=== PATIENT | male | born 1945 | race Caucasian/White ===

== ENCOUNTER 2017-10-24 09:04 | Day surgery (SDC) | payer OTHER ==
[2017-10-19 14:55] LABS: Absolute Lymphocytes (CBC) 0.8 K/uL (0.7-4.9); Absolute Monocytes 0.3 K/uL (0.1-1.3); Absolute Neutrophil 7.4 K/uL (1.8-8.0); Basophils % 0.2 % (0-1.3); Eosinophils % 0.6 % (0-4.4); Hematocrit 39.8 % (39.6-49.0); Lymphocytes % 9.5 % (15.3-44.8); MCH 30.6 pg (27.0-35.0); MCV 92.3 fL (80-100); MPV 9.5 fL (7.6-11.3); Monocytes % 3.3 % (3.3-12.3); RBC Red Blood Cell Count 4.31 M/uL (4.33-5.43)
[2017-10-19 15:12] LABS: Urine Appearance CLEAR; Urine Bilirubin NEGATIVE (NEG); Urine Blood 2+ (NEG); Urine Color YELLOW; Urine Glucose NEGATIVE (NEG); Urine Protein TRACE (NEG); Urine Urobilinogen 0.2 mg/dL (0.2-1.0)
[2017-10-19 15:15] LABS: Urine Microscopic Reflex ORDER UMIC
[2017-10-19 15:18] LABS: Phosphorus 2.5 mg/dL (2.5-4.3); Uric Acid 8.4 mg/dL (4.8-8.7)
[2017-10-19 15:19] LABS: Potassium 3.6 mEq/L (3.6-5.0)
[2017-10-19 15:45] LABS: Protime INR 1.1
[2017-10-19 15:53] LABS: Urine Bacteria <20 /HPF (NONE SEEN); Urine Culture Reflex Order NOT NEEDED
[2017-10-19 16:10] LABS: Platelet Estimate ADEQ; Urine White Blood Cell Casts OK
[2017-10-19 16:11] LABS: Blood Morphology Comment NOT SEEN (NOT SEEN)
--- NOTE | 2017-10-19 16:48 | EKG ---
Test Date: 2017-10-19 Test Time: 14:39:00 Land Planner: ERICA MEASUREMENT RESULTS: Intervals: Rate: 69 OH: 160 QRSD: 98 QT: 408 QTc: 437 [place]: P: 2 OH: 160 QRS: -30 T: 27 INTERPRETIVE STATEMENTS: Normal sinus rhythm Left axis deviation Abnormal ECG Compared to ECG 07/18/2017 10:30:48 Left-axis deviation now present Electronically Signed On 10-19-17 16:47:43 CDT by Rupesh Engle
--- OUTSIDE RECORDS SUMMARY | 2017-10-24 09:12 | XMS REPORT | Clinical Summary ---
:1945 Author Organization [facility] Address [address] [place] [address] Care Team Providers Name Role Phone Asked, No Pcp Primary Care Provider Unavailable Allergies Active Allergy Reactions Severity Noted Date Comments Olmesartan 10/11/2016 Current Medications Prescription Sig. Disp. Refills Start Date End Date Status amLODIPine (NORVASC) 10 Take 10 mg by 4 07/29/2016 Active mg tablet mouth once daily. celecoxib (CeleBREX) 200 TAKE ONE 2 08/31/2016 Active MG capsule CAPSULE BY MOUTH TWICE A DAY WITH A MEAL hydroCHLOROthiazide Take 25 mg by 40 07/29/2016 Active (HYDRODIURIL) 25 MG mouth once tablet daily. HYDROcodone-acetaminophen TAKE 1 TABLET 0 08/31/2016 Active (NORCO) 10-325 mg per BY MOUTH EVERY tablet 4 HOURS levothyroxine (SYNTHROID, Take 112 mcg 4 07/29/2016 Active LEVOXYL) 112 mcg tablet by mouth every morning. ondansetron (ZOFRAN) 4 MG TAKE 1 TABLET 0 08/31/2016 Active tablet BY MOUTH EVERY 8 HOURS NEEDED FOR NAUSEA AND VOMITING LIVALO 2 mg tablet Take 2 mg by 4 07/29/2016 Active mouth once daily. lansoprazole (PREVACID) Take 15 mg by Active 15 MG capsule mouth daily. apixaban (ELIQUIS) 2.5 mg Take 1 tablet 60 tablet 0 10/19/2016 tablet (2.5 mg total) 7 by mouth 2 (two) times a day for 30 days. Active Problems Problem Noted Date Osteoarthritis of right hip 10/18/2016 Encounters Date Type Specialty Care Team Description 11/23/2016 Lab Lab Cheko Sandoval MD Other specified disorders of bone density and structure, unspecified site (Primary Dx) after 10/23/2016 Social History Tobacco Use Types Packs/Day Years Used Date Never Smoker Alcohol Use Drinks/Week oz/Week Comments No occasional Sex Assigned at Date Recorded Not on file Last Filed Vital Signs Not on file Plan of Treatment Health Maintenance Due Date Last Done Comments COLONOSCOPY 1996 ZOSTER VACCINE 2006 PNEUMOCOCCAL POLYSACCHARIDE VACCINE AGE 65 AND OVER 2011 PNEUMOCOCCAL-13 2011 INFLUENZA VACCINE 02/28/2017 Implants Implanted Type Area Hot Stamp Operator Device Expiration Model / Identifier Date Serial / Lot Linear Lateral Porous W/ P2, Size 11 Hip Implant N/A: [employer] 2020 [id number] / Implanted: Qty: 1 on 10/18/2016 by Cheko Sandoval MD System N/A ( [employer]) [id number] Head Fml Actblr Sys Imp Co-Cr 40mm -3.5mm Fmp - [id number] Hip Joint N/A: [employer] 05/27/2021 [id number] / Implanted: Qty: 1 on 10/18/2016 by Cheko Sandoval MD Implants N/A LP / [id number] Sleeve Actblr Natrl Ofst Bl - [id number] Hip Joint Right: [employer] 12/21/2021 [id number] 000 / Implanted: Qty: 1 on 10/18/2016 by Cheko Sandoval MD Implants Hip LP / [id number] Fmp Hemispherical Shells W/Screw Holes, 56mm, W/P2 Coating - [id number] IMPLANT Right: [employer] 08/18/2022 [id number] / Implanted: Qty: 1 on 10/18/2016 by Cheko Sandoval MD DEVICES Hip / [id number] Liner / Non-Hooded - Neutral, Mp9, Hxe-Plus, 40mm - [id number] [id number] IMPLANT Right: [employer] 09/19/2021 [id number] / Implanted: Qty: 1 on 10/18/2016 by Cheko Sandoval MD DEVICES Hip / [id number] Results Miscellaneous referral test (11/23/2016 2:18 PM) Component Value Ref Range Misc test name 1,25 Dihydroxy Vitamin D Misc test result see note Comment: 1,25-Dihydroxyvitamin D, Serum Result 72 pg/mLHIGH(Reference [id number]) Laboratory Notes This test was developed and its performance characteristics determined by [facility] in a manner consistent with CLIA requirements. This test has not been cleared or approved by the U.S. Food and Drug Administration. Performing Site [facility] [address] [facility] [address] Specimen Performing Laboratory [facility] [address] [place] [address] Vitamin D 25 hydroxy level (11/23/2016 2:18 PM) Component Value Ref Range Vitamin D, 25-hydroxy 21.0 (L) 30.0 - 150.0 ng/mL Comment: This assay reports the sum of 25-hydroxy vitamin D3 and 25-hydroxy vitamin D2. Reference range: 0-17 years: Deficiency: less than 20ng/mL Optimum level: greater than or equal to 20 ng/mL. 18 years and older: Deficiency: less than 20ng/mL Insufficiency: 20-29 ng/mL Optimum Level: 30-80 ng/mL The assay reportable range is 0.0-96.0 ng/mL. Levels higher than 150 ng/mL may be associated with toxicity. If toxicity is clinically suspected and the reported result is >96.0 ng/mL , contact lab for alternative methods to obtain a definitivelevel. If separate quantitation of 25-hydroxy vitamin D3 and 25-hydroxy vitamin D2 is needed, please contact lab for alternative methods. Specimen Performing Laboratory Blood [facility] DEPARTMENT OF PATHOLOGY AND GENOMIC MEDICINE [address] [place] [id number] Parathyroid hormone (11/23/2016 2:18 PM) Component Value Ref Range PTH 57 15 - 65 pg/mL Specimen Performing Laboratory Blood [facility] DEPARTMENT OF PATHOLOGY AND GENOMIC MEDICINE [address] [place] [address] Calcium level (11/23/2016 2:18 PM) Component Value Ref Range Calcium 9.0 8.8 - 10.2 mg/dL Specimen Performing Laboratory Plasma specimen [facility] DEPARTMENT OF PATHOLOGY AND GENOMIC MEDICINE [address] [place] [phone] Hepatic function panel (11/23/2016 2:18 PM) Component Value Ref Range Albumin 3.7 3.5 - 5.0 g/dL Total bilirubin <0.2 0.0 - 1.2 mg/dL Bilirubin direct <0.2 0.0 - 0.3 mg/dL Alkaline phosphatase 60 40 - 129 U/L Protein 6.6 6.3 - 8.3 g/dL Comment: 4.6-7.0 g/dL 1 week 4.4-7.6 g/dL 7 months-1year5.1-7.3 g/dL 1-2 years5.6-7.5 g/dL >3 years6.0-8.0 g/dL 18-150 6.3-8.3 g/dL ALT 32 5 - 50 U/L AST 35 10 - 50 U/L Specimen Performing Laboratory Plasma specimen [facility] DEPARTMENT OF PATHOLOGY AND GENOMIC MEDICINE [address] [place] [address] after 10/23/2016 Insurance Payer Benefit Plan / Group Subscriber ID Type Phone Address AETNA MEDICARE AETNA MEDICARE HMO/PPO [facility] xxxxxxxx O [phone] [place] [id number]
[2017-10-24] MEDS ORDERED: PROPOFOL 200 MG/20 ML VIAL IV ONE ×2 (09:27→15:04)
[2017-10-24] MEDS ORDERED: MIDAZOLAM HCL 2 MG/2 ML INJ ONE ×2 (09:29→15:04)
[2017-10-24] MEDS ORDERED: FENTANYL CITR 100 MCG/2 ML ONE (09:34)
[2017-10-24] MEDS ORDERED: LIDOCAINE 2% MPF 5 ML VIAL ONE ×2 (09:34→15:04)
[2017-10-24] MEDS ORDERED: ONDANSETRON 4 MG/2 ML VIAL ONE ×2 (09:34→15:04)
[2017-10-24] MEDS ORDERED: GENTAMICIN 80 MG/100 ML BAG 80 MG/100 ML BAG IV ONE ×2 (10:10→16:18)
[2017-10-24] MEDS ORDERED: Ringers Lactate 1,000 ML IV ONE ×2 (10:10→16:39)
[2017-10-24] MEDS ORDERED: ROCURONIUM 50 MG/5 ML VIAL IV ONE ×2 (10:26→15:04)
[2017-10-24] MEDS ORDERED: NEOSTIGMINE 1 MG/ML -5 ML SYRINGE ONE (10:39)
[2017-10-24] MEDS ORDERED: GLYCOPYRROLATE 0.2 MG/ML SYR ONE (10:39)
[2017-10-24] MEDS ORDERED: FENTANYL CITR 250 MCG/5 ML ONE (15:04)
--- NOTE | 2017-10-24 18:53 | RAD REPORT ---
EXAM DESCRIPTION: RAD - Urography Retrograde - 10/24/2017 5:38 pm FINDINGS: Abdomen and pelvic fluoroscopy performed. Multiple portable C-arm views were obtained during fluoroscopic assisted retrograde examination. Asse ssment is limited from the available images. Correlation is needed with findings during real-time marion luation.
== END 2017-10-24 20:13 | disposition home or self-care (01) ==
LOC: OR 09:04
PROVIDERS: ATTEND Urology
PROC: 0T768DZ Dilation of Right Ureter with Intraluminal Device, Via Natural or Artificial Opening Endoscopic (ICD-10-PCS; 2017-10-24)
PROC: 0TF68ZZ Fragmentation in Right Ureter, Via Natural or Artificial Opening Endoscopic (ICD-10-PCS; principal; 2017-10-24 16:00)
DX: N20.2 Calculus of kidney with calculus of ureter (principal); I10 Essential (primary) hypertension; E03.9 Hypothyroidism, unspecified; E78.00 Pure hypercholesterolemia, unspecified; G47.33 Obstructive sleep apnea (adult) (pediatric); Z88.6 Allergy status to analgesic agent
CPT/HCPCS: 36415; 52356; 74420; 80048; 82360; 84100; 84550; 85025; 85610; 85730; 87086; 87088; 88300; 93005; J1580 ×2; J2250 ×2; J2405 ×2; J2710; J3010; Q9967; 81003; 81015

== ENCOUNTER 2019-02-21 08:33 | Day surgery (SDC) | payer OTHER ==
--- OUTSIDE RECORDS SUMMARY | 2019-02-21 08:36 | XMS REPORT | Clinical Summary ---
:1945 Author Organization [facility] Address [address] [place] [address] Care Team Providers Name Role Phone Asked, No Pcp Primary Care Provider Unavailable Allergies Active Allergy Reactions Severity Noted Date Comments Olmesartan Other (See Comments) 10/11/2016 Hyper and unable to sleep Medications Medication Sig Dispensed Refills Start Date End Date Status amLODIPine (NORVASC) 10 Take 10 mg by 4 07/29/2016 Active mg tablet mouth once daily. levothyroxine Take 112 mcg by 4 07/29/2016 Active (SYNTHROID, LEVOXYL) 112 mouth nightly. mcg tablet LIVALO 2 mg tablet Take 2 mg by 4 07/29/2016 Active mouth once daily. azaTHIOprine (IMURAN) 50 2 (two) times a 0 10/19/2017 Active mg tablet day. BUMETanide (BUMEX) 0.5 daily with 0 11/20/2017 Active MG tablet lunch. predniSONE (DELTASONE) every other day. 0 10/04/2017 Active 10 mg tablet tamsulosin (FLOMAX) 0.4 Take 0.4 mg by 1 08/24/2017 Active mg capsule,extended mouth daily. release 24hr oxybutynin XL Take 10 mg by 0 10/24/2017 Active (DITROPAN-XL) 10 MG 24 mouth daily. hr tablet cephalexin (KEFLEX) 500 Take 500 mg by 2 10/15/2017 Active MG capsule mouth daily. calcium carbonate Take 1,200 mg by 0 Active (CALCIUM 600 ORAL) mouth every morning. cholecalciferol, vitamin Take by mouth 0 Active D3, (VITAMIN D3) 5,000 every morning. unit tablet ranitidine (ZANTAC) 150 Take 150 mg by 0 Active MG tablet mouth as needed for heartburn. Active Problems Problem Noted Date Osteoarthritis of right hip 10/18/2016 Encounters Date Type Specialty Care Team Description 12/27/2018 Transcribe Orders Access Hosea Luis, Lumbar radiculopathy (Primary Dx) after 02/20/2018 Social History Tobacco Use Types Packs/Day Years Used Date Never Smoker Smokeless Tobacco: Never Used Alcohol Use Drinks/Week oz/Week Comments Yes 10-12 Cans of beer 6.0 - 7.2 Sex Assigned at Date Recorded Not on file Job Start Date Occupation Industry Not on file Not on file Not on file Travel History Travel Start Travel End No recent travel history available. Last Filed Vital Signs Not on file Plan of Treatment Health Maintenance Due Date Last Done Comments COLONOSCOPY SCREENING 1996 SHINGLES VACCINES (#1) 1996 65+ PNEUMOCOCCAL VACCINE (1 of 2 - PCV13) 2011 INFLUENZA VACCINE 02/28/2019 Implants Implanted Type Area Seconds Inspector Device Shelf Model / Identifier Expiration Serial / Date Lot Linear Lateral Porous W/ P2, Size 11 Hip Implant N/A: [employer] 2020 [id number] / Implanted: Qty: 1 on 10/18/2016 by Cheko Sandoval MD System N/A ( [employer]) [id number] Head Fml Actblr Sys Imp Co-Cr 40mm -3.5mm Fmp - [id number] Hip Joint N/A: [employer] 05/27/2021 [id number] 000 / Implanted: Qty: 1 on 10/18/2016 by Cheko Sandoval MD Implants N/A LP / [id number] Sleeve Actblr Natrl Ofst Bl - [id number] Hip Joint Right: [employer] 12/21/2021 [id number] 000 / Implanted: Qty: 1 on 10/18/2016 by Cheko Sandoval MD Implants Hip LP / [id number] Fmp Hemispherical Shells W/Screw Holes, 56mm, W/P2 Coating - [id number] IMPLANT Right: [employer] 08/18/2022 [id number] / Implanted: Qty: 1 on 10/18/2016 by Cheko Sandoval MD DEVICES Hip / [id number] Liner / Non-Hooded - Neutral, Mp9, Hxe-Plus, 40mm - [id number] IMPLANT Right: [employer] 09/19/2021 [id number] / Implanted: Qty: 1 on 10/18/2016 by Cheko Sandoval MD DEVICES [facility] / [id number] Stent Uresean Unvrsa Reprcsd 6fr 26cm Hydrphlc Ctng - [id number] Urological Right: [employer] 09/21/2020 [id number] / Implanted: Qty: 1 on 11/28/2017 by Hemal Loya MD Implants or N/A / Sets [id number] Results Not on fileafter 02/20/2018 Advance Directives Patient has advance care planning documents on file. For more information, please contact:Peng [address] [place] [address]
--- OUTSIDE RECORDS SUMMARY | 2019-02-21 08:36 | XMS REPORT | Continuity of Care Document ---
:1945 Author Organization [employer] Care Team Providers Name Role Phone [employer] Unavailable Unavailable Problems Problem Status Onset Classification Date Comments Source Date Reported Hydronephrosis Active 05/24/20 Finding 10/25/[address] [facility] [place] Colitis Active 05/24/20 Finding 10/25/[address] [facility] [place] Hypothyroid Active 05/24/20 Finding 10/25/[address] [facility] [place] Nephrolithiasis Active 05/24/20 Finding 10/25/[address] [facility] [place] HTN Active 05/24/20 Finding 10/25/[address] [facility] [facility] [place] Medications Medication Details Route Status Patient Ordering Order Source Instructions Provider Date Docusate Sodium DAILY Active St. NEEDED PRN 2018 [facility] [place] Constipation Azathioprine TWICE DAILY Active [facility] 2018 [facility] [place] Tamsulosin AT BEDTIME Active [facility] [place] Hydroxyzine Hcl DAILY Active [facility] [place] Cephalexin DAILY Active [facility] 2017 [facility] [place] Prednisone DAILY Active [facility] [place] Amlodipine Besylate DAILY AFTER Active [facility] SUPPER [facility] [place] Levothyroxine DAILY Active [facility] 2017 [facility] [place] Hydrochlorothiazide DAILY Active [facility] [place] Pitavastatin Calcium DAILY Active [facility] [place] Allergies, Adverse Reactions, Alerts Substance Category Reaction Severity Reaction Status Date Comments Source type Reported codeine Unknown Allergy to Active [facility] St[facility] Substance 8 [facility] [place] hydrocodone Hives Propensity Active St. to adverse 8 [facility] - reactions [place] olmesartan very Propensity Active [facility]. hyper, to adverse 8 [facility] couldn't reactions [place] sleep Immunizations Immunization Date Given Site Status Last Comments Source Updated Influenza Adult 05/24/2017 completed [facility] [place] Results Order Name Results Value Reference Date Interpretation Comments Source Range Laboratory Urine WBC Urine WBC 10/[address] [facility] [address] Studies /2017 [facility] [place] Laboratory Urine <5 10/19 [facility]. Studies Squamous /2017 [facility] Epithelial [place] Cells Laboratory Urine RBC Urine RBC 10/19 St[facility] Studies /2017 [facility] [place] Laboratory Urine Culture Urine 10/19 [facility] Studies Reflexed Culture /2017 [facility] Reflexed [place] Laboratory Urine <20 10/19 [facility] Studies Bacteria /2017 [facility] [place] Laboratory Urine pH 7.0 10/19 [facility]. Studies [facility] [place] Laboratory Urine 0.2 10/19 [facility] Studies Urobilinogen /2017 [facility] [place] Laboratory Urine Total Urine Total 10/19 [facility] Studies Protein Protein /2017 [facility] [place] Laboratory Urine 1.020 10/19 [facility] Studies Specific /2017 [facility] [place] Laboratory Urine Nitrite Urine 10/19 [facility] Studies Nitrite /2017 [facility] [place] Laboratory Urine Urine 10/19 [facility] Studies Leukocyte Leukocyte /2017 [facility] Esterase Esterase [place] Laboratory Urine Ketones Urine 10/19 [facility] Studies Ketones /2017 [facility] [place] Laboratory Urine Glucose Urine 10/19 [facility] Studies Glucose /2017 [facility] [place] Laboratory Urine Color Urine Color 10/19 [facility]. Studies /2018 [facility] [place] Laboratory Urine Blood Urine Blood 10/19 [facility]. Studies /2017 [facility] [place] Laboratory Urine Urine 10/19 [facility] Studies Bilirubin Bilirubin /2017 [facility] [place] Laboratory Urine Urine 10/19 [facility] Studies Appearance Appearance /2017 [facility] [place] Laboratory Blood Blood 10/19 [facility]. Studies Morphology Morphology /2017 [facility] - Comment Comment [place] Laboratory Prothrombin 13.0 9.5 - 12.5 10/19 [facility]. Studies Time /2017 [facility] [place] Laboratory INR 1.10 10/19 [facility]. Studies International /2018 [facility] Normalized [place] Ratio Laboratory Activated 28.0 24.3 - 10/19 [facility]. Studies Partial 36.9 /2017 [facility] Thromboplast [place] Time Laboratory Sodium Level 141 135 - 145 10/[address] [facility] [address] Studies /2017 [facility] [place] Laboratory Potassium 3.6 3.6 - 5.0 10/19 [facility]. Studies Level /2017 [facility] [place] Laboratory Glucose Level 140 65 - 120 10/[address] [facility] [address] Studies /2018 [facility] [place] Laboratory Estimat 75 90 10/19 [facility]. Studies Glomerular /2017 [facility] Filtration [place] Rate Laboratory Creatinine 0.98 0.61 - 10/19 [facility]. Studies 1. [facility] [place] Laboratory Chloride 102 101 - 111 10/19 [facility]. Studies Level /2017 [facility] [place] Laboratory Carbon 32 21 - 31 10/19 [facility]. Studies Dioxide Level /2017 [facility] [place] Laboratory Calcium Level 9.4 8.5 - 10.5 10/19 [facility]. Studies /2017 [facility] [place] Laboratory Blood Urea 22 6 - 20 10/19 [facility]. Studies Nitrogen /2017 [facility] [place] Laboratory Uric Acid 8.4 4.8 - 8.7 10/19 [facility]. Studies /2018 [facility] [place] Laboratory Phosphorus 2.5 2.5 - 4.3 10/19 [facility]. Studies Level /2017 [facility] [place] Laboratory White Blood 8.5 4.3 - 10.9 10/19 [facility]. Studies Count /2017 [facility] [place] Laboratory Red Cell 16.2 12.1 - 10/19 [facility]. Studies Distribution 15.2 /2017 [facility] Width [place] Laboratory Red Blood 4.31 4.33 - 10/19 [facility] Studies Count 5.43 /2017 [facility] [place] Laboratory Platelet 244 152 - 406 10/19 [facility]. Studies Count /2017 [facility] [place] Laboratory Neutrophils % 86.4 41.7 - 10/19 [facility]. Studies 73.7 /2017 [facility] [place] Laboratory Monocytes % 3.3 3.3 - 12.3 10/19 [facility]. Studies /2018 [facility] [place] Laboratory Mean Platelet 9.5 7.6 - 11.3 10/19 [facility]. Studies Volume /2017 [facility] [place] Laboratory Mean 92.3 80 - 100 10/[address] [facility] [address] Studies Corpuscular /2017 [facility] Volume [place] Laboratory Mean 33.1 32.0 - 10/19 [facility]. Studies Corpuscular 36.0 [facility] - Hemoglobin [place] Concent Laboratory Mean 30.6 27.0 - 10/19 [facility]. Studies Corpuscular 35.0 [facility] Hemoglobin [place] Laboratory Lymphocytes % 9.5 15.3 - 10/[address] [facility] [address] Studies 44.8 /2017 [facility] [place] Laboratory Hemoglobin 13.2 13.6 - 10/19 [facility]. Studies 17.9 /2017 [facility] [place] Laboratory Hematocrit 39.8 39.6 - 10/[address] [facility] [address] Studies 49.0 [facility] [place] Laboratory Eosinophils % 0.6 0 - 4.4 10/[address] [facility] [address] Studies [facility] [place] Laboratory Basophils % 0.2 0 - 1.3 10/[address] [facility] [address] Studies [facility] [place] Laboratory Absolute 7.4 1.8 - 8.0 10/19 [facility]. Studies Neutrophil [facility] [place] Laboratory Absolute 0.3 0.1 - 1.3 10/19 [facility]. Studies Monocytes [facility] - (CBC) [place] Laboratory Absolute 0.8 0.7 - 4.9 10/19 [facility]. Studies Lymphocytes [facility] - (CBC) [place] Laboratory Absolute 0.1 0 - 0.5 10/19 [facility]. Studies Eosinophils [facility] - (CBC) [place] Laboratory Absolute 0.0 0 - 0.5 10/19 [facility]. Studies Basophils [facility] - (CBC) [place] Pathology Reports No Data Provided for This Section Diagnostic Reports No Data Provided for This Section Consultation Notes No Data Provided for This Section Discharge Summaries No Data Provided for This Section History and Physicals No Data Provided for This Section Vital Signs Vital Sign Value Date Comments Source Temperature Oral (F) 97.7 F 10/24/2017 [facility] [place] Heart Rate 80 10/24/2017 [facility] [place] Respitory Rate 22 10/24/2017 [facility] Systolic (mm Hg) 149 [facility] [place] Diastolic (mm Hg) 78 10/24/[address] [facility] [place] Height 69 10/19/[address] [facility] [place] Weight 271.00 10/19/[address] [facility] [place] Encounters Location Location Encounter Encounter Reason Attending ADM DC Status Source Details Type Number For Provider Date Date Visit JT St. Registered [id number] 07/[address] [facility] [place] [facility] Registered [id number] 10/[address] [facility] [place] [facility] Departed [id number] 10/24 10/[address] [facility] [place] [facility] [place] Procedures Procedure Code Date Perfomer Comments Source CYSTOSCOPY, RIGHT [id number] [facility] [place] PYELOGRAM.. CYSTO URETEROSCOPY [id number] [facility] - HOLMIUM LASER [place] Urography [id number] 10/24/[address] [facility] Retrograde [place] [id number] 10/19/[address] [facility] [place] Count [id number] 10/19/[address] [facility] [place] Abdomen 1 View [id number] 10/16/[address] [facility] (K[facility] [place] Abdomen 1 View [id number] 07/27/[address] [facility] [place] Assessment and Plan No Data Provided for This Section Plan of Care Plan of Care Date Source No known plan of care. 10/25/[address] [facility] [place] No known plan of care. 10/25/[address] [facility] [place] Social History Social History Date Source Query Response Date Recorded Comment 10/25/[address] [facility] [place] Alcohol Use? No May 24, 2017 3:16am CD- Drugs? No May 24, 2017 3:16am Family History Value Date Source Query Response Instance Date Recorded Comment 10/25/[address] [facility] [place] Medical History Hypertension Father May 24, 2017 3:16am Medical History Hypertension May 12, 2017 1:08pm Advance Directives Order Name Results Value Date Source Advance Directives Advance Directives Advance Directive Response Recorded Date/Time 10/25/2017 [facility] - Does Patient Have Living Will [place] No May 24, 2017 6:00am Durable Power of Commercial Loan [facility] No May 24, 2017 3:16am Functional Status No Data Provided for This Section
--- OUTSIDE RECORDS SUMMARY | 2019-02-21 08:37 | XMS REPORT ---
:1945 Author Organization [facility] Address [address] [place] [address] Dr. Montgomery [address] [place] [address] Care Team Providers Name Role Phone Unavailable Unavailable Unavailable Problems This patient has no known problems. Allergies, Adverse Reactions, Alerts This patient has no known allergies or adverse reactions. Medications This patient has no known medications.
--- OUTSIDE RECORDS SUMMARY | 2019-02-21 08:37 | XMS REPORT | Summary of Care ---
:1945 Author Name AIDEE Ramirez, BELINDA Address MD Physicians Unavailable , Care Team Providers Name Role Phone CHARLIE Ramirez, RODRICK Unavailable Unavailable AMERICA Ramirez, CHRISS Unavailable Unavailable RUDY GUTIERRES M.D., ANA Unavailable Unavailable LANA Ramirez, FILIBERTO Unavailable Unavailable JULIOCESAR Ramirez, CHRISTIN Unavailable Unavailable AIDEE Ramirez, BELINDA Unavailable Unavailable SHUN LEBLANC, CHRISS Frazier Unavailable Unavailable AZAM LEBLANC MD, ALVERTO Unavailable Unavailable Belinda Machado MD Unavailable Unavailable MOODY LEBLANC MD, MAZIN Vu Unavailable Unavailable Unavailable Unavailable Unavailable Functional Status Name Dates Details Functional status health issues are not documented Status: Name Dates Details Cognitive status health issues are not documented Status: Problems Name Dates Details Pre-operative cardiovascular examination (V72.81, Z01.810) Status: Active Chronic hip pain, right (719.45, M25.551) Status: Active Primary localized osteoarthrosis of right hip (715.15, M16.11) Status: Active Hypokalemia (276.8, E87.6) Status: Active Folliculitis (704.8, L73.9) Status: Active Dermatitis (692.9, L30.9) Status: Active Other pruritus (698.8, L29.8) Status: Active Actinic keratoses (702.0, L57.0) Status: Active Bullous pemphigoid (694.5, L12.0) Status: Active High risk medication use (V58.69, Z79.899) Status: Active History of squamous cell carcinoma of skin (V10.83, Z85.828) Status: Active History of basal cell cancer (V10.83, Z85.828) Status: Active Seborrheic dermatitis (690.10, L21.9) Status: Active Medications Name Dates Details hydroCHLOROthiazide 25 MG Oral Tablet one tablet once daily Refills: 0 Active Zetia 10 MG Oral Tablet TAKE 1 TABLET DAILY. Refills: 0 Active Synthroid 112 MCG Oral Tablet TAKE 1 TABLET DAILY Quantity: 30 Refills: 4 Active Norvasc 10 MG Oral Tablet TAKE 1 TABLET DAILY. Refills: 0 Active Livalo 2 MG Oral Tablet one tablet once daily Refills: 0 Active Limbrel 500 MG Oral Capsule One tablet by mouth twice daily Refills: 0 Active Potassium Chloride ER 20 MEQ Oral Tablet Extended Release TAKE 1 TABLET BY MOUTH DAILY Quantity: 30 Refills: 1 CHRISS CROSS M.D. Start : 01-Sep-2016 Active Clindamycin Phosphate 1 % External Solution APPLY DIRECTED. Quantity: 60 Refills: 0 FILIBERTO SCHWARTZ M.D. Start : 05-Nov-2018 Active predniSONE 10 MG Oral Tablet TAKE DIRECTED. Quantity: 90 Refills: 0 ANA PEREZ M.D. Start : 19-Jun-2017 Active azaTHIOprine 50 MG Oral Tablet Take 1 tablet by mouth twice a day Quantity: 180 Refills: 0 RODRICK GUERRA M.D. Start : 07-Aug-2017 Active Triamcinolone Acetonide 0.1 % External Ointment APPLY SPARINGLY AND RUB IN WELL TO AFFECTED AREA(S) TWICE DAILY. NOT FOR FACE, BREAST OR GROIN. Quantity: 454 Refills: 3 RODRICK GUERRA M.D. Start : 02-Oct-2017 Active Fluorouracil 5 % External Cream Use to rough red area on scalp and arms twice a day for 2 weeks. Quantity: 1 Refills: 2 CHRISTIN GANDARA M.D. Start : 12-Mar-2018 Active 40 GM Tube Triamcinolone Acetonide 0.1 % External Cream APPLY AND RUB IN A THIN FILM TO AFFECTED AREAS TWICE DAILY.(AM AND PM). Quantity: 1 Refills: 3 RUDY GUTIERRES M.D. ANA Start : 12-Mar-2018 Active 453.6 GM Jar Ketoconazole 2 % External Cream APPLY A THIN LAYER TO AFFECTED AREA(S) TWICE DAILY. Quantity: 1 Refills: 6 RUDY GUTIERRES M.D. ANA Start : 10-Sep-2018 Active 60 GM Tube Allergies and Adverse Reactions Name Dates Details Benicar TABS (Allergy) Reaction: Other Status: Active Latex (Allergy) Status: Active Past Medical History Name Dates Details History of Appendicitis, acute (540.9, K35.80) Status: Resolved History of arthritis (V13.4, Z87.39) Status: Resolved History of Basal cell carcinoma of nose (173.31, C44.311) Status: Resolved History of Benign essential hypertension (401.1, I10) Status: Resolved History of Hypothyroidism due to acquired atrophy of thyroid (244.8, E03.4) Status: Resolved History of Measles without complication (055.9, B05.9) Status: Resolved History of Mumps without complication (072.9, B26.9) Status: Resolved History of Other hyperlipidemia (272.4, E78.49) Status: Resolved History of Varicella without complication (052.9, B01.9) Status: Resolved Procedures Procedure Dates Details History of Appendectomy Completed History of Arthroscopy Knee Left Completed Immunization Name Dates Details Pneumo Comments: Approx [id number] Family History Name Dates Details Family history of pneumonia (V18.8, Z83.1) Status: Active Name Dates Details Family history of malignant neoplasm of urinary bladder (V16.52, Z80.52) Status: Active Social History Name Dates Details - Status: Name Dates Details Never smoker Vital Signs Date Test Result Details No Known Vitals to report Results Date Description Value Details Results not documented Plan of Care Name Dates Details Planned Observations Planned Goals not documented Planned Encounters Appointment; BELINDA MACHADO M.D. On: 11-Mar-2019 10:20 Interventions Provided Medication ChangesazaTHIOprine 50 MG Oral Tablet - RenewTriamcinolone Acetonide 0.1 % External Ointment - RenewPlan1. Bullous pemphigoid- Continue imuran 50 mg PO BID.- Continue triamcinolone 0.1% cream BID PRN.- Start Sarna OTC- Due for labs, he notes his PCP will run labs in 2 weeks, he will have CBC and CMP faxed to us2. High risk med use- CBC and CMP as mentioned above3. Actinic Keratoses of the right dorsal hand- Counseled on condition- Sun protection advised- Discussed this is a precancer lesion.- #1 lesion were treated with cryotherapy today- Blistering and wound care discussedCryotherapy: The risks/benefits/ alternatives of the procedure were explained to the patient. We explained the healing process involved with liquid nitrogen cryotherapy including the possibility of blistering of the lesions after treatment, crusting, and permanent hypopigmentation at the site of treatment. Patient expressed understanding. Lesions were treated by liquid nitrogen cryotherapy following verbal consent. Post-procedure wound care instructions were given.4. 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 Instructions Name Dates Details Instructions not documented Encounters Appointment; BELINDA MACHADO M.D. On: 21-Apr-2017 9:45 Encounter Diagnosis: Problem not documented Appointment; BELINDA MACHADO M.D. On: 19-Jun-2017 9:45 Encounter Diagnosis: Problem not documented Appointment; BELINDA MACHADO M.D. On: 03-Jul-2017 10:55 Encounter Diagnosis: Problem not documented Appointment; BELINDA MACHADO M.D. On: 07-Aug-2017 9:30 Encounter Diagnosis: Problem not documented Appointment; BELINDA MACHADO M.D. On: 02-Oct-2017 10:45 Encounter Diagnosis: Problem not documented Appointment; BELINDA MACHADO M.D. On: 01-Jan-2018 10:40 Encounter Diagnosis: Problem not documented Appointment; BELINDA MACHADO M.D. On: 01-Jan-2018 10:45 Encounter Diagnosis: Problem not documented Appointment; BELINDA MACHADO M.D. On: 12-Mar-2018 10:10 Encounter Diagnosis: Problem not documented Appointment; BELINDA MACHADO M.D. On: 11-Jun-2018 9:40 Encounter Diagnosis: Problem not documented Appointment; BELINDA MACHADO M.D. On: 25-Jun-2018 8:00 Encounter Diagnosis: Problem not documented Appointment; ALVERTO NASCIMENTO M.D. On: 10-Sep-2018 9:50 Encounter Diagnosis: Problem not documented Appointment; MAZIN URIOSTEGUI On: 25-Sep-2018 14:30 Encounter Diagnosis: Problem not documented Appointment; MAZIN URIOSTEGUI On: 03-Oct-2018 15:45 Encounter Diagnosis: Problem not documented Appointment; BELINDA MACHADO M.D. On: 10-Dec-2018 10:30 Encounter Diagnosis: Problem not documented
[2019-02-21 09:50] LABS: Protime INR 1.13
--- NOTE | 2019-02-21 13:52 | RAD REPORT ---
EXAM DESCRIPTION: RAD - Myelography Lumbar - 02/21/2019 12:12 pm CLINICAL HISTORY: Low back pain, bilateral lower extremity radiculopathy COMPARISON: Lumbar plain films February 21 TECHNIQUE: Patient presents for fluoro guided lumbar myelogram and postmyelogram CT imaging. The pro cedure, risks and alternatives to the procedure were discussed with the patient in detail. After answ ering all questions, both oral and written consent were obtained. Time-out procedure was performed. T he patient had no contraindicated allergy or medication history. The patient was placed in an oblique prone position on the fluoroscopic table. The skin of the lower back was prepped and draped in the usual sterile fashion. After anesthetizing the skin and deeper sof t tissues with 1% lidocaine, a 22 gauge needle was advanced into the thecal sac at the L3 level. Intrathecal placement was confirmed. A minimal amount of blood was seen at initial needle positioning . This quickly cleared. Approximately 10 mL of Isovue-M 200 contrast material was instilled into the thecal sac. At the conclusion of the procedure the needle was withdrawn and a sterile bandage placed over the pun cture site. The patient tolerated the procedure well without immediate complications. Patient was tra nsferred to the CT suite for cross-sectional imaging. The patient was then transferred to the same da y surgical area for post myelogram monitoring. Fluoro time was 4.4 minutes. There were 12 fluoroscopic images obtained. IMPRESSION: Successful fluoroscopic guided lumbar myelogram. Myelogram imaging results are incorpora harpreet into this CT lumbar spine report.
--- NOTE | 2019-02-22 07:22 | RAD REPORT ---
EXAM DESCRIPTION: CT - Spine Lumbar Wo Con - 02/21/2019 11:58 am CLINICAL HISTORY: Low back pain, bilateral lower extremity radiculopathy COMPARISON: Lumbar myelogram same date TECHNIQUE: Thin section axial imaging of the lumbar spine was performed. Sagittal and coronal recon struction images were generated and reviewed. Angled axial reconstruction images were obtained throug h the lumbar disc spaces. Imaging was performed following a separately reported lumbar myelogram proc edure. All CT scans are performed using dose optimization technique as appropriate and may include automated exposure control or mA/KV adjustment according to patient size.
== END 2019-02-21 14:40 | disposition home or self-care (01) ==
LOC: DS 08:33
PROVIDERS: ATTEND Specialist
DX: M54.16 Radiculopathy, lumbar region (principal); M54.5 Low back pain; M71.38 Other bursal cyst, other site
CPT/HCPCS: 36415; 85610; 85730; 72131; 62304; Q9966

== ENCOUNTER 2020-02-05 15:36 | Emergency (ER) | payer OTHER ==
--- OUTSIDE RECORDS SUMMARY | 2020-02-05 15:39 | XMS REPORT | Clinical Summary ---
:1945 Author Organization [facility] Address [address] [place] [address] Care Team Providers Name Role Phone Asked, Pcp Primary Care Provider Unavailable Allergies Active Allergy Reactions Severity Noted Date Comments Olmesartan Other (See Comments) 10/11/2016 Hyper a nd unable to sleep Medications Medication Sig Dispensed [...] (IMURAN) 50 2 (two) times a 0 8 Active mg tablet day. BUMETanide (BUMEX) 0.5 daily with 0 11/20/2017 Active MG tablet lunch. predniSONE (DELTASONE) every other day. 0 10/04/2017 Active 10 mg tablet tamsulosin (FLOMAX) 0.4 Take 0.4 mg by 1 08/24/2017 Active mg capsule,extended mouth daily. release 24hr oxybutynin XL Take 10 mg by 0 10/24/2017 A ctive (DITROPAN-XL) 10 MG 24 mouth daily. hr [...] Encounters Date Type Specialty Care Team Description 10/25/2019 Telephone Orthopedic Surgery Nieves Chambers PA after 02/04/2019 Social History Tobacco Use Types Packs/Day Years Used Date Never Smoker Smokeless Tobacco: Never Used Alcohol Use Drinks/Week oz/Week Comments Yes 10-12 Cans of beer 10.0 - 12.0 Sex Assigned at Date Recorded Not on [...] of 2 - PCV13) 2011 INFLUENZA VACCINE 02/29/2020 Implants Implanted Type Area Career Technical Education Instructor Device Shelf Model / Identifier Expiration Serial / Date Lot Linear Lateral Porous W/ P2, Size 11 Hip Implant N/A: [employer] L 06/03/2021 [id number] / Implanted: Qty: 1 on 10/18/2016 by Cheko Sandoval MD at [facility] System N/A ([employer]) [id number] Head Fml Actblr Sys Imp Co-Cr 40mm -3.5mm Fmp - [id number] Hip Ofelia int N/A: [employer] 05/27/2021 [id number] / Implanted: Qty: 1 on 10/18/2016 by Cheko Sandoval MD at [facility] Implants N/A LP / [id number] Sleeve Actblr Natrl Ofst Bl - [id number] Hip Joint Right: [employer] 12/21/2021 [id number] / Implanted: Qty: 1 on 10/18/2016 by Cheko Sandoval MD at [facility] Implants Hip LP / [id number] Fmp Hemispherical Shells W/Screw Holes, 56mm, W/P2 Coa ting - [id number] IPM IMPLANT Right: [employer] 08/18/2022 [id number] / Implanted: Qty: 1 on 10/18/2016 by Cheko Sandoval MD at [facility] DEVICES Hip / [id number] Liner / Non-Hooded - Neutral, Mp9, Hxe-Plus, 40mm - [id number] IPM IMPLANT Right: [employer] 09/19/2021 [id number] / Implanted: Qty: 1 on 10/18/2016 by Cheko Sandoval MD at [facility] DEVICES Hip / [id number] Stent Uretl Unvrsa Reprcsd 6fr 26cm Hydrphlc Ctng - [id number] Urological Right: [employer] 09/21/2020 [id number] / Implanted: Qty: 1 on 11/28/2017 by Hemal Loya MD at [facility] Implants or N/A / Sets [id number] Results Not on fileafter 02/04/2019 Advance Directives For more information, please contact: [phone] Type Date Recorded Patient Hcc Coders Explanati on Advance Directives, Living Will and Medical Power of Child Support Agent Advance Directives, 11/30/2017 10:47 AM Living Will and Medical Power of Child Support Agent Advance Directives, 11/30/2017 10:47 AM Living Will and Medical Power of Child Support Agent
--- OUTSIDE RECORDS SUMMARY | 2020-02-05 15:40 | XMS REPORT | Continuity of Care Document ---
:1945 Author Organization [facility] t Address [address] [place] [address] Care Team Providers Name Role Phone Asked, Pcp Primary Care Physician Unavailable Larry Rankin MD Attending Clinician Unique Lozano Attending Clinician Guille LEBLANC, L Attending Clinician AIDEE Attending Clinician Unavailable HARPREET Attending Clinician Unavailable MOODY Attending Clinician Unavailable AZAM Attending Clinician Unavailable Payers Payer Name Policy Type Policy Number Effective Date Expiration Date [place] sequeira AETNA xxxxxxxx 2013 [place] MEDICAREAETNA 00:00:00 [facility] MEDICARE HMO/PPO [id number] 4-PresentHMO Problems Condition Condition Condition Status Onset Resolution Last Treating Co mments Source Name Details Category Date Date Treatment Clinician Date Osteoarthr Osteoarthr Disease Active 2017- H jennifer itis of itis of 3-21 Methodi right hip right hip 00:00: st 00 History of History of Problem Resolve Univers Appendicit Appendicit d it [place] of [place] acute [place] of History of Problem Resolve Univers arthritis arthritis d ity of [place] Physici ans History of History of Problem Resolve Univers 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 Physici ans History of History of Problem Resolve Univers Benign Benign d [place] of essential essential [place] hypertensi hypertensi Ph ysici on on ans History of History of Problem Resolve Univers Hypothyroi Hypothyroi d it y of dism due dism due [place] to to Physici 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 History of History of Problem Resolve Univers Measles Measles d ity of without without [place] complicati complicati Ph ysici on on ans History of History of Problem Resolve Univers Mumps Mumps d ity of without without [place] complicati complicati Ph ysici on on ans History of History of Problem Resolve Univers Other Other d ity of hyperlipid hyperlipid [place] Physici ans History of History of Problem Resolve Univers Varicella Varicella d ity of without without [place] complicati complicati Ph ysici on on ans Pre-operat Pre-operat Problem Active U nivers rickey rickey ity of cardiovasc cardiovasc [place] ular ular Physici examinatio examinatio an s n n Chronic Chronic Problem Active Univers hip pain, hip pain, ity of right right [place] Physici ans Primary Primary Problem Active Univers localized localized [place] of osteoarth[place]oarthr [place] osis of [place]sis of Physici right hip right hip ans Hypokalemi Hypokalemi Problem Active U nivers a a ity of [place] Physici ans Folliculit Folliculit Problem Active U nivers is is ity of [place] Physici ans Dermatitis Dermatitis Problem Active U nivers ity of [place] Physici ans Other Other Problem Active Univers pruritus pruritus ity of [place] Physici ans 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 ity of [place] Physici ans 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 it y of [place] Physici ans High risk High risk Problem Active Uni vers medication medication it y of use use [place] Physici ans History of History of Problem Active U 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 ici of skin of skin ans History of History of Problem Active U nivers basal cell basal cell it y of cancer cancer [place] Physici ans Seborrheic Seborrheic Problem Active U nivers dermatitis dermatitis it y of [place] Physici ans Allergies, Adverse Reactions, Alerts Allergy Allergy Status Severity Reaction(s) Onset Inactive Treating Comm ents Source Name Type Date Date Clinician levothyr DA Active PR [facility] oxine 6-11 Clear 00:00: Franco 00 [facility] olmesart DA Active PR [facility] an 6-11 Clear 00:00: Franco 00 [facility] Propensi Active Other (See Hyper and Khoury an ty to Comments) 3-14 unable to Meth kylee adverse 00:00: sleep st reaction 00 s to drug Benicar Allergy Active Other Univers TABS to drug ity of (finding [place] ) Physici ans Latex Allergy Active Univers to ity of substanc [place] e Physici (finding ans ) Family History Family Member Diagnosis Comments Start Date Stop Date Source Mother Family history of Univers ity of [place] pneumonia Physicians Father Family history of Univers it[place] of [place] malignant neoplasm Physic ians of urinary bladder Social History Social Habit Start Date Stop Date Quantity Comments Source Sex Assigned At [facility] ethodist Alcohol intake 2017-11-30 2017-11-30 Current drinker [place] [facility] 00:00:00 00:00:00 of alcohol (finding) Smoking Status Start Date Stop Date Source Never smoker [place] Methodis t Medications Ordered Filled Start Stop Current Ordering Indication Dosage Frequency Signature Comments Components Source Medication Medication Date Date Medication? Clinician (SIG) Name Name Ketoconazol Ketoconazol Yes ANA Q0.5D APPLY A Univers e 2 % e 2 % 2-11 RUDY THIN LAYER ity of External External 00:00[place] TO [place] Cream Cream 00 M.D. AFFECTED Physici AREA(S) ans TWICE DAILY. Fluorouraci Fluorouraci Yes CHRISTIN Use to Univers l 5 % l 5 % 8-13 VANGIPURAM rough red it y of External External 00:00[place] Cream Cream 00 scalp and Physici arms twice ans a day for 2 weeks. Triamcinolo Triamcinolo Yes DB Q0.5D APPLY AND Univers ne ne 8-13 HILL M.D. RUB IN A ity o f Acetonide Acetonide 00:00: THIN FILM [place] 0.1 % 0.1 % 00 TO Physici External External AFFECTED ans Cream Cream AREAS TWICE DAILY.(AM AND PM). calcium 2018-0 Yes 1200mg QD Take 1,200 [place] carbonate 5-01 mg by Methodi (CALCIUM 18:45: mouth st 600 ORAL) 40 every morning. cholecalcif 2018-0 Yes QD Take by Emily ston adi, 5-01 mouth Methodi vitamin D3, 18:45: every st (VITAMIN 40 morning. D3) 5,000 unit tablet ranitidine 2018-0 Yes 150mg Take 150 [place] (ZANTAC) 5-01 mg by Methodi 150 MG 18:45: mouth as st tablet 40 needed for heartburn. BUMETanide 2018-0 Yes QD daily with H ouel[place] (BUMEX) 0.5 4-23 lunch. Method i MG tablet 00:00: st 00 oxybutynin Yes 10mg QD Take 10 mg [place] XL 3-27 by mouth Methodi (DITROPAN-X 00:00: daily. st L) 10 MG 24 00 hr tablet azaTHIOprin 2017-0 Yes Q.5D 2 (two) Emily sophian e (IMURAN) 3-22 times a Method i 50 mg 00:00: day. st tablet 00 cephalexin 2017-0 Yes 500mg QD Take 500 [place] (KEFLEX) 3-18 mg by Methodi 500 MG 00:00: mouth st capsule 00 daily. predniSONE 2018-0 Yes Q2D every [place] (DELTASONE) 3-07 other day. Me thodi 10 mg 00:00: st tablet 00 Triamcinolo Triamcinolo 0 Yes RODRICK Q0.5D APPLY [facility] it[facility] of Acetonide Acetonide 00:00: EH M.D. AND RUB IN [place] 0.1 % 0.1 % 00 WELL TO Physici External External AFFECTED ans Ointment Ointment AREA(S) TWICE DAILY. NOT FOR FACE, BREAST OR GROIN. tamsulosin 2018-0 Yes .4mg QD Take 0.4 Emily ston (FLOMAX) 1-25 mg by Methodi 0.4 mg 00:00: mouth st capsule,ext 00 daily. ended release 24hr azaTHIOprin azaTHIOprin 2017- Yes DB Q0.5D Take 1 Univers e 50 MG e 50 MG 1-08 HILL M.D. tablet by ity of Oral Tablet Oral Tablet 00:00: mouth [place] 00 twice a Physici day ans predniSONE predniSONE 2016-07 Yes ANA TAKE Univers 10 MG Oral 10 MG Oral 1-20 RUDY DIRECTED. ity of Tablet Tablet 00:00: BHAVIK [place] 00 M.D. Physici ans Clindamycin Clindamycin Yes SHAI APPLY Univers Phosphate 1 Phosphate 1 04-21 HILARIO DIRECTED. ity of % External % External 00:00: M.D. [place] Solution Solution 00 Physici ans Potassium Potassium Yes CHRISS TAKE 1 Univers Chloride ER Chloride ER 2-02 [facility] M.D. TABLET BY ity of 20 MEQ Oral 20 MEQ Oral 00:00: MOUTH [place] Tablet Tablet 00 DAILY Physici Extended Extended ans Release Release amLODIPine 2015-07 Yes 10mg QD Take 10 mg [place] (NORVASC) 2-30 by mouth Method i 10 mg 00:00: once st tablet 00 daily. levothyroxi 2015-07 Yes 112ug QD Take 112 [place] ne 2-30 mcg by Methodi (SYNTHROID, 00:00: mouth st LEVOXYL) 00 nightly. 112 mcg tablet LIVALO 2 mg 2015-07 Yes 2mg QD Take 2 mg [place] tablet 2-30 by mouth Methodi 00:00: once st 00 daily. hydroCHLORO hydroCHLORO Yes one tablet Univers thiazide 25 thiazide 25 once daily ity of MG Oral MG Oral [place] Tablet Tablet Physici ans Zetia 10 MG Zetia 10 MG Yes 1 QD TAKE 1 Univers Oral Tablet Oral Tablet TABLET ity of DAILY. [place] Physici ans Synthroid Synthroid Yes 1 QD TAKE 1 Uni vers 112 MCG 112 MCG TABLET ity of Oral Tablet Oral Tablet DAILY [place] Physici ans Norvasc 10 Norvasc 10 Yes 1 QD TAKE 1 U nivers MG Oral MG Oral TABLET ity of Tablet Tablet DAILY. [place] Physici ans Livalo 2 MG Livalo 2 MG Yes one tablet Univers Oral Tablet Oral Tablet once daily ity of [place] Physici ans Limbrel 500 Limbrel 500 Yes One tablet Univers MG Oral MG Oral by mouth ity o f Capsule Capsule twice [place] daily Physici ans Immunizations Ordered Filled Date Status Comments Source Immunization Name Immunization Name Pneumo Unknown Completed Approx [facility] [id number] [place] Physicia ns Procedures Procedure Date / Time Performing Clinician Source Performed History of Appendectomy Universi ty [facility] Physicians History of Arthroscopy Univers y [facility] Knee Left Physicians Plan of Care Planned Activity Planned Date Details Comments Source Future Scheduled 2020-02-29 INFLUENZA VACCINE [place] [facility] Test 00:00:00 [code = INFLUENZA VACCINE] Future Scheduled 2011 65+ PNEUMOCOCCAL [place] [facility] Test 00:00:00 VACCINE (1 of 2 - PCV13) [code = 65+ PNEUMOCOCCAL VACCINE (1 of 2 - PCV13)] Future Scheduled 1996 COLONOSCOPY SCREENING [place] [facility] Test 00:00:00 [code = COLONOSCOPY SCREENING] Future Scheduled 1996 SHINGLES VACCINES (#1) H jennifer [facility] Test 00:00:00 [code = SHINGLES VACCINES (#1)] Encounters Start End Encounter Admission Attending Care Care Encounter Source Date/Time Date/Time Type Type Clinicians Facility Department ID 2019-11-20 2019-11-20 Refill [facility] [id number] 00:00:00 00:00:00 [facility] [id number] [place] [id number] Professio [phone] [place] [address] [address] 2019-11-08 2019-11-08 Telephone [facility] [id number] 00:00:00 00:00:00 Chriss [place] [id number] gab [place] [id number] Professio [id number] [address] 2019-10-17 2019-10-17 Office [facility] [id number] 10:05:25 10:50:12 Visit [facility] [id number] Surgical [id number] Specialti [id number] [place] 2019-10-14 2019-10-14 Appointmen KRYSTA HOSKINS Dermatology [id number] Univers 10:40:00 10:40:00 t; BELINDA HOSKINS - [place] ity of RONALD, M.D. [facility] ans 2019-09-13 2019-09-13 Appointmen KRYSTA MULLINS UTP [id number] Univers 09:50:00 09:50:00 t; CHIVO MULLINS ity o f STEVEN, [facility]. [facility] 2019-07-15 2019-07-15 AppointKRYSTA Vargas Dermatology [id number] Univers 09:20:00 09:20:00 t; BELINDA HOSKINS, - [place] Estefania M.D. [facility] [place] Physici ans 2019-04-22 2019-04-22 AppointKRYSTA Vargas Dermatology [id number] Univers 10:30:00 10:30:00 t; BELINDA HOSKINS, - [place] Estefania M.D. [facility] [place] Physici ans 2018-12-10 2018-12-10 AppointKRYSTA Vargas Dermatology [id number] Univers 10:30:00 10:30:00 t; BELINDA HOSKINS, [facility] Estefania M.D. [facility] [place] Physici ans 2018-10-03 2018-10-03 AppointKRYSTA Stephen [facility] [id number] Univers 15:45:00 15:45:00 t; MAZIN URIOSTEGUI [facility] Physici ans 2018-09-25 2018-09-25 AppointKRYSTA Stephen [facility] [id number] Univers 14:30:00 14:30:00 t; MAZIN URIOSTEGUI [facility] Physici ans 2018-09-10 2018-09-10 AppointKRYSTA Johnson [facility] [id number] Univers 09:50:00 09:50:00 t; ALVERTO NASCIMENTO M.D. itsherri ALVERTO [place] Physici ans 2018-06-25 2018-06-25 Appointarlette HOSKINS, KRYSTA [facility] [id number] Univers 08:00:00 08:00:00 t; BELINDA HOSKINS ity of [place], M.D. [facility] ans 2018-06-11 2018-06-11 Valentín HOSKINS, KRYSTA [facility] [id number] Univers 09:40:00 09:40:00 t; BELINDA HOSKINS ity of [place], M.D. [facility] ans 2018-03-12 2018-03-12 AppointKRYSTA Vargas [facility] [id number] Univers 10:10:00 10:10:00 t; BELINDA HOSKINS ity of [place], M.D. [facility] Physici ans 2018-01-01 2018-01-01 KRYSTA Rodriguez UTP [id number] Univers 10:45:00 10:45:00 t; BELINDA HOSKINS ity of [place], M.D. [facility] Physici ans 2018-01-01 2018-01-01 KRYSTA Rodriguez UTP [id number] Univers 10:40:00 10:40:00 t; BELINDA HOSKINS ity of [place], M.D. [facility] Physici ans 2017-10-02 2017-10-02 KRYSTA Rodriguez UTP [id number] Univers 10:45:00 10:45:00 t; BELINDA HOSKINS ity of [place], M.D. [facility] Physic ans 2017-08-07 2017-08-07 KRYSTA Rodriguez UTP [id number] Univers 09:30:00 09:30:00 t; BELINDA HOSKINS ity of [place], M.D. [facility] Physic ans 2017-07-03 2017-07-03 Valentín HOSKINS, KRYSTA UTP [id number] Univers 10:55:00 10:55:00 t; BELINDA HOSKINS ity of [place], M.D. [facility] Physici ans 2017-06-19 2017-06-19 Valentín HOSKINS, KRYSTA UTP [id number] Univers 09:45:00 09:45:00 t; BELINDA HOSKINS ity of [place], M.D. [facility] Physici ans 2017-04-21 2017-04-21 KRYSTA Rodriguez UTP [id number] Univers 09:45:00 09:45:00 t; BELINDA HOSKINS ity of [place], M.D. [facility] ans Results Test Description Test Time Test Comments Results Result Comments Source BASIC METABOLIC PANEL 2020-01-17 06:20:00 Test Item Value Reference Range Interpretation Comme nts SODIUM (test code = NA) 142 mmol/L 136-145 N POTASSIUM (test code = K) 4.2 mmol/L 3.5-5.1 N CHLORIDE (test code = CL) 104.0 mmol/L 98-107 N CARBON DIOXIDE (test code = 25.4 mmol/L 21-32 N CO2) GLUCOSE (test code = GLU) 164 mg/dL 70-110 H BLOOD UREA NITROGEN (test code 24 mg/dL 7-18 H = BUN) GLOMERULAR FILTRATION RATE 54.6 >60 U nit of measure: (test code = GFR) mL/min/1.7 3 [id number] Range:Healthy A dults >90 mL/min/1.73 m2 For Chronic Kidney Disease: Stage II Mi ld Decrease in GFR 60-9 0 Stage III Moderate Decrease in GFR 30-59 Stage IV Severe Decrease in GFR 15-29 Stage V Kidney Failure <15 CREATININE (test code = CREAT) 1.29 mg/dL 0.55-1.30 N CALCIUM (test code = CA) 7.8 mg/dL 8.2-10.1 L HGB [id number] 05:38:00 Test Item Value Reference Range Interpretation Comments HEMOGLOBIN (test code = HGB) 11.0 g/dL 12-16 L HEMATOCRIT (test code = HCT) 33.4 % 37-47 L - XR PELVIS 1/2 [id number] 17:19:00 Patient Name: MARYCRUZ YANG Unit No: [id number] EXAMS: CPT CODE: [id number] XR PELVIS 1/2 VIEWS 65790 AP VIEW OF THE PELVIS. COMMENT: In progress total right hip arthroplasty. AP view the pelvis COMMENT: COMPARISON: No prior exams available. Completed total right hip arthroplasty. Prosthesis appears to be in good position. Patient has had a previous total left hip arthroplasty. Noevidence of periprosthetic fracture. at 1715 Reported and signed by: Zahida Jennings MD CC: Yeyo Morales MD Technologist: GE[place]IA MARION RT(R) Transcribed D/ ([id number]) t.GUANAKOR.GVG [facility] NAME: MARYCRUZ YANG [address] [facility] PHYS: MATVA.01 - Yeyo Morales : 1945 AGE: 74 SEX: M [place], [place] [address] LOC: Y.319 A PHONE #:[phone] EXAM DATE: 01/16/2020 STATUS: ADM IN FAX #: [phone] RAD #: D/C DT PAGE 1 Signed Report Patient Name: MARYCRUZ YANG Unit No: [id number] EXAMS: CPT CODE: [id number] XR PELVIS 1/2 VIEWS 48859 <Continued> Orig Print D/T: S: 01/16/2020 (1822) [facility] NAME: MARYCRUZ YANG [address] [facility] PHYS: MATVA. - Yeyo Morales M : 1945 AGE: 74 SEX: M [place] [address] LOC: Y.319 A PHONE #: [phone] EXAM DATE: 01/16/2020 STATUS: ADM IN FAX #: [phone] RAD #: D/C DT PAGE 2 Signed Report- XR PELVIS 1/2 VIEWS 2020-01-16 17:19:00 Patient Name: MARYCRUZ YANG Unit No: [id number] EXAMS: CPT CODE: [id number] XR PELVIS 1/2 VIEWS 61653 AP VIEW OF THE PELVIS. COMMENT: In progress total right hip arthroplasty. AP view the pelvis COMMENT: COMPARISON: No prior exams available. Completed total right hip arthroplasty. Prosthesis appears to be in good position. Patient has had a previous total left hip arthroplasty. Noevidence of periprosthetic fracture. at 1719 Reported and signed by: Zahida Jennings MD CC: Yeyo Morales MD Technologist: ARDEN GOLD (RT.R) Transcribed D/ ([id number]) ZacharyGV[facility] NAME: MARYCRUZ YANG [address] [facility] PHYS: MATVA.Freddy - Yeyo Morales : 1945 AGE: 74 SEX: M [place], [place] [address] LOC: Y.319 A PHONE #:[phone] EXAM DATE: 01/16/2020 STATUS: ADM IN FAX #: [phone] RAD #: D/C DT PAGE 1 Signed Report Patient Name: MARYCRUZ YANG Unit No: [id number] EXAMS: CPT CODE: [id number] XR PELVIS 1/2 VIEWS 48824 <Continued> Orig Print D/T: S: 01/16/2020 (1722) [facility] NAME: MARYCRUZ YANG [address] [facility] [address] PHYS: MATVA.01 - Yeyo Morales : 1945 AGE: 74 SEX: M [place], [place] [address] LOC: Y.319 A PHONE #: [phone] EXAM DATE: 01/16/2020 STATUS: ADM IN FAX #: [phone] RAD #: D/C DT PAGE 2 Signed ReportNovel Coronavirus 2019 [id number] 13:01:00 Test Item Value Reference Range Interpretation Comments Novel Coronavirus 2019 Inhouse (test Negative Negative code = COVNONPUI) Novel Coronavirus 2019 [id number] 13:00:00 Test Item Value Reference Range Interpretation Comments Novel Coronavirus 2019 Inhouse (test Negative Negative code = COVNONPUI) CBC W/AUTO [id number] 14:39:00 Test Item Value Reference Range Interpretation Comments WHITE BLOOD CELL (test code = WBC) 5.5 K/mm3 5.7-10.5 L RED BLOOD CELL (test code = RBC) 4.49 M/mm3 4.2-5.4 N HEMOGLOBIN (test code = HGB) 14.4 g/dL 12-16 N HEMATOCRIT (test code = HCT) 42.2 % 37-47 N MEAN CELL VOLUME (test code = MCV) 94 fL 80-98 N MEAN CELL HGB (test code = MCH) 32.1 pg 27-34 N MEAN CELL HGB CONCENTRATION (test 34.1 g/dL 30.8-34.1 N code = MCHC) RED CELL DISTRIBUTION WIDTH (test 14.7 % 11-16 N code = RDW) PLT (test code = PLT) 195 K/mm3 130-400 N MEAN PLATELET VOLUME (test code = 11.8 fL 8.9-12.1 N MPV) NEUTROPHIL % (test code = NT%) 65.1 % 45-70 N LYMPHOCYTE % (test code = LY%) 16.1 % 20-40 L MONOCYTE % (test code = MO%) 12.3 % 3-10 H EOSINOPHIL % (test code = EO%) 5.5 % 1-5 H BASOPHIL % (test code = BA%) 0.6 % 0.0-1.1 N NEUTROPHIL # (test code = NT#) 3.55 K/mm3 2.00-7.50 N LYMPHOCYTE # (test code = LY#) 0.88 K/mm3 1.50-4.00 L MONOCYTE # (test code = MO#) 0.67 K/mm3 0.2-0.8 N EOSINOPHIL # (test code = EO#) 0.30 K/mm3 0.04-0.4 N BASOPHIL # (test code = BA#) 0.03 K/mm3 0.02-0.10 N MANUAL DIFF REQUIRED (test code = NO MANUAL DIFF MDIFF) NUCLEATED RED BLOOD CELL (test 0 % 0-0 N code = NRBC) SED [id number] 14:39:00 Test Item Value Reference Range Interpretation Comments SED RATE (test code = SEDW) 6 mm/hr 0-15 N CBC W/AUTO [id number] 13:21:00 Test Item Value Reference Range Interpretation Comments WHITE BLOOD CELL (test code = WBC) 5.5 K/mm3 5.7-10.5 L RED BLOOD CELL (test code = RBC) 4.49 M/mm3 4.2-5.4 N HEMOGLOBIN (test code = HGB) 14.4 g/dL 12-16 N HEMATOCRIT (test code = HCT) 42.2 % 37-47 N MEAN CELL VOLUME (test code = MCV) 94 fL 80-98 N MEAN CELL HGB (test code = MCH) 32.1 pg 27-34 N MEAN CELL HGB CONCENTRATION (test 34.1 g/dL 30.8-34.1 N code = MCHC) RED CELL DISTRIBUTION WIDTH (test 14.7 % 11-16 N code = RDW) PLT (test code = PLT) 195 K/mm3 130-400 N MEAN PLATELET VOLUME (test code = 11.8 fL 8.9-12.1 N MPV) NEUTROPHIL % (test code = NT%) 65.1 % 45-70 N LYMPHOCYTE % (test code = LY%) 16.1 % 20-40 L MONOCYTE % (test code = MO%) 12.3 % 3-10 H EOSINOPHIL % (test code = EO%) 5.5 % 1-5 H BASOPHIL % (test code = BA%) 0.6 % 0.0-1.1 N NEUTROPHIL # (test code = NT#) 3.55 K/mm3 2.00-7.50 N LYMPHOCYTE # (test code = LY#) 0.88 K/mm3 1.50-4.00 L MONOCYTE # (test code = MO#) 0.67 K/mm3 0.2-0.8 N EOSINOPHIL # (test code = EO#) 0.30 K/mm3 0.04-0.4 N BASOPHIL # (test code = BA#) 0.03 K/mm3 0.02-0.10 N MANUAL DIFF REQUIRED (test code = NO MANUAL DIFF MDIFF) NUCLEATED RED BLOOD CELL (test 0 % 0-0 N code = NRBC) SED [id number] 13:21:00 Test Item Value Reference Range Interpretation Comments SED RATE (test code = SEDW) mm/hr 0-15 C REACTIVE [id number] 13:21:00 Test Item Value Reference Range Interpretation Comments C REACTIVE PROTEIN (test code = < 0.2 mg/dL <0.9 CRP) COMPREHENSIVE METABOLIC [id number] 13:21:00 Test Item Value Reference Range Interpretation Comments SODIUM (test code = 144 mmol/L 136-145 N NA) POTASSIUM (test code = 4.2 mmol/L 3.5-5.1 N K) CHLORIDE (test code = 105.0 mmol/L 98-107 N CL) CARBON DIOXIDE (test 31.6 mmol/L 21-32 N code = CO2) GLUCOSE (test code = 107 mg/dL 70-110 N GLU) BLOOD UREA NITROGEN 17 mg/dL 7-18 N (test code = BUN) GLOMERULAR FILTRATION 60.5 >60 Unit o f measure: RATE (test code = GFR) mL/mi n/1.73 p2Hglorqdpy Range:Healthy Adults >90 mL/min/1.73 m2 For Chronic Kidney Disease: St age II Mild Decrease in GFR 60-90 St age III Moderate Decrease in GFR 30-59 Stage IV Severe Decre ase in GFR 15- 29 Stage V Kidney Failure <15 CREATININE (test code 1.18 mg/dL 0.55-1.30 N = CREAT) TOTAL PROTEIN (test 6.6 g/dL 6.4-8.2 N code = PROT) ALBUMIN (test code = 3.8 g/dL 3.4-5.0 N ALB) GLOBULIN (test code = 2.8 g/dL 2.2-4.2 N GLOB) ALBUMIN/GLOBULIN RATIO 1.4 0.7-2.0 N (test code = A/G) CALCIUM (test code = 8.7 mg/dL 8.2-10.1 N CA) BILIRUBIN TOTAL (test 0.40 mg/dL 0.2-1.00 N code = BILT) SGOT/AST (test code = 17.0 U/L 15-37 N AST) SGPT/ALT (test code = 25.0 U/L 12-78 N Please note new ALT) normal range. ALKALINE PHOSPHATASE 49 U/L 46-116 N TOTAL (test code = ALKP) PROTHROMBIN [id number] 13:21:00 Test Item Value Reference Range Interpretation Comments PROTHROMBIN TIME 12.7 secs 10.1-12.5 H PATIENT (test code = PTP) INTERNATIONAL NORMAL 1.14 <2.0 RECOMME NDED THERAPEUTIC RATIO (test code = RANGE FOR ORAL INR) ANTICOAGULANTTR EATMENT: CONDI TION INRProphylaxis of venous thrombos is in 2.0 - 3.0 high-risk medic al or surgical patientsTreatme nt of venous thrombos is 2.0 - 3.0Prevention o f embolism 2.0 - 3.0Prevention o f recurrent embol ism, or 3.0 - 4. 5 patients with mechanical pros thetic intravascular v garcía IS PATIENT ON ANTICOAGULANTS ? NHas Lab been notified if Patient is on Heparin Drip? NOIf Yes, orderCBC, OCCULT BLOOD, PT every other day NTHROMBOPLASTIN TIME [id number] 13:21:00 Test Item Value Reference Range Interpretation Comments PTT ACTIVATED (test code = APTT) 32.5 secs 24.9-37.0 N IS PATIENT ON ANTICOAGULANTS ? NHas Lab been notified if Patient is on Heparin Drip? NOIf Yes, orderCBC, OCCULT BLOOD, PT every other day [id number] 16:32:00 Test Item Value Reference Range Interpretation Comments CHROMIUM (test code = CHROM) < 1.0 ng/mL <3.0 [id number] 16:32:00 Test Item Value Reference Range Interpretation Comments COBALT (test code <1.0 ng/mL <3.0 Chromium a nd cobalt = COB) analysis perfor med by inductively coupledplasma/m ass spectrometry (ICP/MS).Refere nce range is for patients with pdcxm-na-ndnig (MoM)orthopedic implants.The Am er[place] Association of Hip and Knee Surgeons, the AmericanAcademy of Orthopaedic Tay geons, and The Hip Society , have publisheda cons ensus statement, "Ris k Stratification Algorithm for Managemento f Patients with Metal-on-M etal Hip Arthroplasty." The algorithm isint ended as an aid to orthoped ic surgeons in the assessme nt andmanagement o f patients with Metal-on-M etal bearings.The sy stematic risk stratifica tion includes recomm endations formultiple mod es of failure and str atifies patient risk gr oups based joe thorough cl inical history, a deta iled physical examination,rad iographic tests, and labo ratory tests including measurement ofm etal ions (chromium and c obalt).The following strat ification applies to small products i assembler mium or cobalt asindivi dual analytes, not t o the combined total. Low Risk Group: <3.0 ng/mLModerate R isk Group: 3.0 - 10.0 n g/mLHigh Risk Group: >10.0 ng/mLMeta l ion tests are an importan t adjunct to systemic clinicalassessm ent; however, metal ion levels alone should no t be relied onas the sole p arameter to determine clini yasmin recommendations forrevision tay miranda.J Bone Joint Surg Am. 2014;96:e4(1-6) . This test was feliz benson and its performance characteristics determined by Festus Watkins. It has not been cl eared or approved by the Food and Drug Administration. Performed At: [facility] [address] [address] [facility] Ph:[phone] - MRI JNT W/O CONT [id number] 08:59:00 Patient Name: MARYCRUZ YANG Unit No: [id number] EXAMS: CPT CODE: [id number] MRI LW JNT W/[place] [id number] MRI PELVIS AND BILATERAL HIP JOINTS DIAGNOSIS: 1. Patient status post bilateral hip arthroplasty. Evaluation is limited due to metal artifact. No definite MR evidence of periprosthetic osteolysis. No MR evidence of pseudotumor. No abnormal fluid collections or joint effusion. No evidence of synovitis. 2. There is moderately increased signal which involves the bilateral obturator externus muscle bellies or significant on the right posterosuperior mild muscle belly strain. Is also mildly increased signal involving the right inferior pubic ramus. 3. Focal increased interstitial signal involves the origin of the hamstring tendon origins at the left ischial tuberosity. Findings compatible with moderate to marked tendinosis with partial-thickness interstitial tearing. INDICATION: Right hip pain, COMPARISON: None PULSESEQUENCES: Multiplanar, multisequence MRI is obtained of the pelvis and bilateral hips withoutcontrast. Patient is status post bilateral hip arthroplasty. Evaluation is limited due to metal artifact. No evidence of periprosthetic fracture or other bony abnormality exam. Left hamstring origin abnormality as described above.. No muscle belly atrophy or edema. No trochanteric bursal fluid to suggest bursitis. Limited evaluation of the visualized pelvic structures are normal. Obturator externus muscle belly strains as described. at 0859 Reported and signed by: Zahida Jennings MD CC: Yeyo Morales MD Technologist: Livia Chun(R) Transcribed D/ (0859) [facility] NAME: MARYCRUZ YANG [address] [facility] PHYS: [id number] - Yeyo Morales : 1945 AGE: 74 SEX: M [place], [place] [address] LOC: Y.MRI PHONE #: [phone] EXAM DATE: 12/19/2019 STATUS: DEP CLI FAX #: [phone] RAD #: D/C DT PAGE 1 Signed Report Patient Name: MARYCRUZ YANG Unit No: [id number] EXAMS: CPT CODE: [id number] MRI LW JNT W/[place] [id number] <Continued> Orig Print D/T: S: 12/20/2019 (0902) [facility] NAME: MARYCRUZ YANG [address] [facility] PHYS: [id number] - Yeyo Morales : 1945 AGE: 74 SEX: M [place], [place] [address] LOC: Y.MRI PHONE #: [phone] EXAM DATE: 12/19/2019 STATUS: DEP CLI FAX #: [phone] RAD #: D/C DT PAGE 2 Signed ReportSED [id number] 16:22:00 Test Item Value Reference Range Interpretation Comments SED RATE (test code = SEDW) 3 mm/hr 0-15 N C REACTIVE [id number] 15:10:00 Test Item Value Reference Range Interpretation Comments C REACTIVE PROTEIN (test code = < 0.2 mg/dL <0.9 CRP)
--- NOTE | 2020-02-05 17:36 | RAD REPORT ---
EXAM DESCRIPTION: RAD - Hip Right 2 View - 02/05/2020 5:17 pm CLINICAL HISTORY: s/p R hip revision;Pain COMPARISON: Abdomen 1 View (KUB) dated 11/25/2019 FINDINGS: AP and frog-leg views of the right hip were obtained. Right total hip prosthesis in place. No suspicious findings at the acetabular fixation. Femoral head is normally positioned in the acetabular cup. No radiographic evidence for loosening along the course of the implant. No acute or destructive bony process seen. IMPRESSION: Right total hip prosthesis in place. No acute finding identifiable.
--- NOTE | 2020-02-05 19:17 | EDPHYS ---
Physician Documentation [facility] Name: Christ Cota Age: 74 yrs Sex: Male : 1945 Arrival Date: 02/05/2020 Time: 15:38 Bed 10 Private MD: Patrick Li ED Physician Paolo Hernandez HPI: 02/04 18:30 This 74 yrs old Male presents to ER via Wheelchair with complaints of Hip cp Pain. 18:30 The patient or guardian reports pain. The complaints affect the right hip. Onset: The cp symptoms/episode began/occurred today, pain started after ambulating to restroom. Associated signs and symptoms: Pertinent negatives: abdominal pain, chest pain, dysuria, fever, incontinence, weakness. Severity of symptoms: in the emergency department the symptoms pain resolved while in ED. Patient reports recent revision of right hip prosthesis approximately 3 weeks ago. Patient reports he is supposed to be non-weight bearing on right lower extremity, but admits to ambulating short distance to restroom today prior to have pain to right hip. Patient describes pain as severe "jose r horse".. Historical: - Allergies: 15:56 Benicar; ss - PMHx: 15:56 Hypertension; ss - PSHx: 15:56 Appendectomy; right hip; ss - Immunization history:: Adult Immunizations up to date. - Social history:: Smoking status: Patient denies any tobacco usage or history of. ROS: 18:35 MS/extremity: Positive for decreased range of motion, pain, of the right hip, Negative cp for paresthesias. 18:35 Constitutional: Negative for body aches, chills, fever. cp 18:35 Cardiovascular: Negative for chest pain. 18:35 Respiratory: Negative for cough, shortness of breath, wheezing. 18:35 Abdomen/GI: Negative for abdominal pain, nausea, vomiting, and diarrhea. 18:35 Back: Negative for pain at rest, pain with movement. 18:35 : Negative for urinary symptoms. 18:35 Neuro: Negative for numbness, tingling, weakness. 18:35 All other systems are negative. Exam: 18:40 Constitutional: The patient appears in no acute distress, alert, awake, cp non-diaphoretic, non-toxic, well developed, well nourished. 18:40 Head/Face: Normocephalic, atraumatic. cp 18:40 Chest/axilla: Inspection: normal. 18:40 Cardiovascular: Rate: normal, Edema: ankle edema, that is moderate. 18:40 Respiratory: the patient does not display signs of respiratory distress, Respirations: normal, no use of accessory muscles, no retractions, labored breathing, is not present. 18:40 Abdomen/GI: Exam negative for discomfort, distension, guarding, Inspection: abdomen appears normal. 18:40 Back: pain, is absent, ROM is normal. 18:40 Musculoskeletal/extremity: Joints: All joints are normal except the right hip displays limited range of motion, painful range of motion, surgical scar appears to be healing well with no signs of dehiscence or erythema. Mild swelling noted, DVT Exam: Vital Signs: 15:53 BP 134 / 70; Pulse 62; Resp 16; Temp 98.2(TE); Pulse Ox 96% on R/A; Weight 127.01 kg; ss Height 5 ft. 9 in. (175.26 cm); 15:53 Body Mass Index 41.35 (127.01 kg, 175.26 cm) ss MDM: 18:57 Patient medically screened. cp 19:00 Differential diagnosis: hip fracture, intertrochanteric fracture, femoral neck cp fracture, femoral shaft fracture, dislocated hip, fractured hardware. 19:15 Data reviewed: vital signs, nurses notes, radiologic studies, plain films. cp 19:15 Counseling: I had a detailed discussion with the patient and/or guardian regarding: the cp historical points, exam findings, and any diagnostic results supporting the discharge/admit diagnosis, radiology results, to return to the emergency department if symptoms worsen or persist or if there are any questions or concerns that arise at home. ED course: VSS. Review of xrays of right hip show hardware intact and in place. Spoke with Lucia LEY for surgeon who performed revision of right hip prosthesis who call patient tomorrow to check on him and requested patient be reminded to remain non-weight bearing on right lower extremity. 02/04 15:57 Order name: XRAY Hip RIGHT 2 view; Complete Time: 17:56 ss Administered Medications: No medications were administered Disposition: 19:30 Chart complete. cp Disposition: 02/05/20 19:16 Discharged to Home. Impression: Pain in right hip. - Condition is Stable. - Discharge Instructions: Hip Pain. - Medication Reconciliation Form, Thank You Letter, Antibiotic Education, Prescription Opioid Use form. - Follow up: Private Physician; When: 1 - 2 days; Reason: Recheck today's complaints. - Problem is new. - Symptoms have improved. Addendum: 02/10/2020 16:24 Co-signature as Attending Physician, Paolo Hernandez MD I agree with the assessment and k dr plan of care. Signatures: Dispatcher [employer] EDND Paolo Hernandez MD MD [facility] Jovana Mesa, CIVIL CLERK-C CIVIL CLERK-Csnw Karen Yanez RN RN ss Richard Massey PA PA cp Corrections: (The following items were deleted from the chart) 02/04 19:34 19:16 02/05/2020 19:16 Discharged to Home. Impression: Pain in right hip. Condition is ss Stable. Forms are Medication Reconciliation Form, Thank You Letter, Antibiotic Education, Prescription Opioid Use. Follow up: Private Physician; When: 1 - 2 days; Reason: Recheck today's complaints. Problem is new. Symptoms have improved. cp
--- NOTE | 2020-02-05 19:17 | ER ---
Nurse's Notes [facility] Name: Christ Cota Age: 74 yrs Sex: Male : 1945 Arrival Date: 02/05/2020 Time: 15:38 Bed 10 Private MD: Patrick Li Diagnosis: Pain in right hip Presentation: 02/04 15:53 Chief complaint: Patient states: R hip pain that began 2 hours ago after walking back ss to chair walking back from restroom to chair in living room. Pt recently had a R hip revision surgery. Surgeon advised patient to come to ER for an XRAY and to call him and let him know what it shows. Pt states, "If feels like the worst hugo horse ever that comes and goes.". Coronavirus screen: Proceed with normal triage. Patient denies a cough. Patient denies shortness of breath or difficulty breathing. Patient denies measured and/or subjective temperature greater than 100.4F prior to today's visit. Patient denies travel on a cruise ship or to a country the [facility] currently lists as an affected area. Patient denies contact with known and/or suspected case of COVID-19. Ebola Screen: Patient denies exposure to infectious person. Patient denies travel to an Ebola-affected area in the 21 days before illness onset. Initial Sepsis Screen: Does the patient meet any 2 criteria? No. Patient's initial sepsis screen is negative. Does the patient have a suspected source of infection? No. Patient's initial sepsis screen is negative. Risk Assessment: Do you want to hurt yourself or someone else? Patient reports no desire to harm self or others. Onset of symptoms was February 05, 2020. 15:53 Method Of Arrival: Wheelchair ss 15:53 Acuity: SAMMY 4 ss Historical: - Allergies: 15:56 Benicar; ss - PMHx: 15:56 Hypertension; ss - PSHx: 15:56 Appendectomy; right hip; ss - Immunization history:: Adult Immunizations up to date. - Social history:: Smoking status: Patient denies any tobacco usage or history of. Screenin:50 Abuse screen: Denies threats or abuse. Denies injuries from another. Nutritional ss screening: No deficits noted. Tuberculosis screening: Never had TB. Fall Risk No fall in past 12 months (0 pts). Secondary diagnosis (15 points) No IV (0 pts). Ambulatory Aid- None/Bed Rest/Nurse Assist (0 pts). Mental Status- Oriented to own ability (0 pts). Assessment: 15:53 General: Appears uncomfortable, Behavior is calm, cooperative. Pain: Complains of pain ss in R hip. Pain: Quality of pain is described as "like the worse Hugo horse ever". Neuro: Level of Consciousness is awake, alert, obeys commands, Oriented to person, place, time, situation. Cardiovascular: Capillary refill < 3 seconds is brisk in bilateral fingers. Respiratory: Airway is patent Respiratory effort is even, unlabored, Respiratory pattern is regular, symmetrical. GI: Patient currently denies diarrhea, nausea, vomiting. EENT: Oral mucosa is moist. Derm: Skin is pink, warm \\T\\ dry. 19:19 Reassessment: Patient appears in no apparent distress at this time. Patient and/or ss family updated on plan of care and expected duration. Pain level reassessed. Patient is alert, oriented x 3, equal unlabored respirations, skin warm/dry/pink. Patient denies pain at this time. Vital Signs: 15:53 BP 134 / 70; Pulse 62; Resp 16; Temp 98.2(TE); Pulse Ox 96% on R/A; Weight 127.01 kg; ss Height 5 ft. 9 in. (175.26 cm); 15:53 Body Mass Index 41.35 (127.01 kg, 175.26 cm) ss ED Course: 15:38 Patient arrived in ED. ag5 15:38 Patrick Li MD is Private Physician. ag5 15:55 Triage completed. ss 15:56 Arm band placed on right wrist. ss 17:14 XRAY Hip RIGHT 2 view In Process Unspecified. EDMS 18:28 Richard Massey PA is PHCP. cp 18:28 Paolo Hernandez MD is Attending Physician. cp 18:50 Karen Yanez, GAURAV is Primary Nurse. ss 18:50 Patient has correct armband on for positive identification. Bed in low position. Call ss light in reach. 18:50 No provider procedures requiring assistance completed. Patient did not have IV access ss during this emergency room visit. Administered Medications: No medications were administered Outcome: 19:16 Discharge ordered by . cp 19:33 Discharged to home ambulatory. 19:33 Condition: good 19:33 Discharge instructions given to patient, Instructed on discharge instructions, follow up and referral plans. Demonstrated understanding of instructions, follow-up care. 19:34 Patient left the ED. Signatures: Dispatcher [employer] Karen Martinez RN RN Richard Massey, PA PA Heber Glez ag5
[2020-02-05 19:39] VITALS: BP 134/70; TEMP 98.2; O2SAT 96
== END 2020-02-05 19:34 | disposition home or self-care (01) ==
LOC: ER 15:36
DX: M25.551 Pain in right hip (principal); I10 Essential (primary) hypertension; Z88.8 Allergy status to other drugs, medicaments and biological substances
CPT/HCPCS: 99283

== ENCOUNTER 2023-01-05 08:00 | Day surgery (SDC) | payer OTHER ==
[2023-01-03 11:35] LABS: Absolute Lymphocytes (CBC) 0.8 K/uL (0.7-4.9); Hematocrit 44.5 % (39.6-49.0); Lymphocytes % 12.2 % (15.3-44.8); MPV 9.4 fL (7.6-11.3); RBC Red Blood Cell Count 4.64 M/uL (4.33-5.43)
[2023-01-03 11:38] LABS: Protime INR 2.14
[2023-01-03 11:48] LABS: Potassium 3.2 mEq/L (3.5-5.1)
--- NOTE | 2023-01-03 12:11 | RAD REPORT ---
EXAM DESCRIPTION: RAD - Chest Pa And Lat (2 Views) - 01/03/2023 11:46 am CLINICAL HISTORY: pre op cardoiversion. Hypertension COMPARISON: Abdomen 1 View (KUB) dated 11/25/2019; Abdomen 1 View (KUB) dated 08/26/2019; Abdomen 1 Vi ew (KUB) dated 08/12/2019; Chest Pa And Lat (2 Views) dated 08/05/2019 TECHNIQUE: PA and lateral views of the chest were obtained. FINDINGS: The lungs are clear. Heart size is normal and central vasculature is within normal limits. No pleural effusion or pneumothorax seen. No acute bony finding noted. IMPRESSION: No acute cardiopulmonary process.
--- NOTE | 2023-01-04 07:18 | EKG ---
Test Date: 2023-01-03 Test Time: 11:04:09 Asphalt Raker: TRISTON MEASUREMENT RESULTS: Intervals: Rate: 66 [place]: QRSD: 100 QT: 446 QTc: 467 [place]: P: WA: QRS: -56 T: 41 INTERPRETIVE STATEMENTS: Atrial flutter with variable AV block Left axis deviation Low voltage QRS Incomplete right bundle branch block Nonspecific ST abnormality Abnormal ECG Compared to ECG 08/06/2019 10:38:16 Left-axis deviation now present Low QRS voltage now present Incomplete right bundle-branch block now present Sinus rhythm no longer present Atrial premature complex(es) no longer present ST (T wave) deviation still present Electronically Signed On 01-04-23 07:14:14 CDT by Ephraim Posey
[~2023-01-05 08:00] MED LIST: ATROPINE SULF 1 MG/10 ML SYR IV ONE; FLUMAZENIL 0.1 MG/ML (5 mL VIAL) IV ONE; METOPROLOL TARTRATE 5 MG/5 ML INJ IV ONE; MIDAZOLAM HCL 10 ML ONE; NA CHLORIDE 0.9% 500 ML ONE; PHENOL 1.4% ORAL SPRAY 180ML ONE
[2023-01-05] MEDS ORDERED: LIDOCAINE VISCOUS 2% SOLN 15 ML UDC ONE ×2 (09:20→09:21)
[2023-01-05 09:21] VITALS: BP 154/94; O2SAT 100
[2023-01-05] MEDS ORDERED: SUCCINYLCHOLINE 20 MG/ML (10 ML) IV ONE (09:55)
[2023-01-05] MEDS ORDERED: propofoL 200 MG/20 ML VIAL IV ONE (09:58)
--- NOTE | 2023-01-05 13:25 | EKG ---
Test Date: 2023-01-05 Test Time: 10:02:47 Compressor Operator: JOSE MEASUREMENT RESULTS: Intervals: Rate: 68 TX: 212 QRSD: 100 QT: 450 QTc: 478 [place]: P: 79 TX: 212 QRS: -46 T: 66 INTERPRETIVE STATEMENTS: Sinus rhythm with 1st degree AV block Left axis deviation Abnormal ECG Compared to ECG 01/03/2023 11:04:09 First degree AV block now present Atrial flutter no longer present Incomplete right bundle-branch block no longer present ST (T wave) deviation no longer present Electronically Signed On 01-05-23 13:24:52 CDT by Don Foreman
--- NOTE | 2023-01-05 13:41 | TEE ---
TRANSESOPHAGEAL ECHOCARDIOGRAM REPORT CARDIOLOGY DEPARTMENT DATE OF STUDY: 01/05/2023 HEIGHT: 5'9" WEIGHT: 275 lbs DIAGNOSIS: ATRIAL FIBRILLATION, CARDIOVERSION NURSING ASSOCIATE COMMENTS: SUMIT CARDIAC HISTORY: CATHERIZATION: SURGERY: PROSTHETIC VALVE: PACEMAKER: 2 DIMENSIONAL ASSESSMENT: RIGHT ATRIUM: LEFT ATRIUM: RIGHT VENTRICLE: LEFT VENTRICLE: TRICUSPID VALVE: MITRAL VALVE: PULMONIC VALVE: AORTIC VALVE: PERICARDIAL EFFUSION: AORTIC ROOT: EJECTION FRACTION: 55-60 % LEFT VENTRICULAR WALL MOTION: DOPPLER/COLOR FLOW: COMMENTS: 1. TRANSESOPHAGEAL ECHOCARDIOGRAM PROBE WAS INSERTED WITHOUT DIFFICULTY 2. WATCHMAN IS SEATED WELL, NO LEAK, NO THROMBUS 3. NORMAL LEFT VENTRICULAR EJECTION FRACTION 55-60% 4. MILD MITRAL REGURGITATION TECHNOLOGIST: NADEEM VEGA
--- NOTE | 2023-01-05 14:02 | OP ---
Date of Procedure: 01/05/2023 Surgeon: BRICE TOMLIN Procedures Performed: 1.Transesophageal echocardiogram. 2.Electrical cardioversion to normal sinus rhythm using 200 joules in synchronized manner. Indication: Atrial fibrillation, post Watchman. Description Of Procedure: After risks, benefits, and alternatives were explained, the patient agreed to the procedure and signed informed consent. I gave him 7 mg of Versed; however, he would not get sedated very well to perform procedure, so Anesthesia was contacted and they were kind enough to help . He was put under deep sedation with propofol and SUMIT probe was inserted without difficulties and T EE was performed. There was no thrombus on the artery device, so a synchronized 200 joule electrical cardioversion was performed successfully converting the rhythm into normal sinus rhythm. Conclusion: 1.Successful SUMIT-guided electrical cardioversion. 2.Watchman is seated well with no thrombus and no leak. SR/MODL Voice ID: [id number] Report ID: [id number]
== END 2023-01-05 11:20 | disposition home or self-care (01) ==
LOC: CCL 08:00
PROVIDERS: ATTEND Internal Medicine
DX: I48.91 Unspecified atrial fibrillation (principal); Z98.890 Other specified postprocedural states
CPT/HCPCS: 93005 ×2; 93312; 85025; 80048; 36415; 85610; 85730; 71046; 92960; J2250; J2704; J0461; J7040